=== PATIENT | female | born 1990 | race Asian ===

== ENCOUNTER 2018-01-29 19:44 | Emergency (ER) | payer MEDICAID ==
[~2018-01-29] VITALS: Ht 172.7 cm; Wt 91.6 kg
[~2018-01-29 19:44] MED LIST: PREN-96 PO
[2018-01-29 20:58] LABS: Basophils # (auto) 0 uL; Basophils % (auto) 0.5 % (0.0-2.0); Eosinophils # (auto) 0.3 uL; Monocytes # (auto) 0.5 uL
[2018-01-29 21:00] LABS: Eosinophils % (auto) 3.4 % (0.0-7.0); Hematocrit 40.5 % (36.0-46.0); Hemoglobin 13.3 g/dL (12.2-16.2); Lymphocytes % (auto) 35.9 % (10.0-50.0); Mean Corpuscular Hemoglobin 25.6 pg (28.0-32.0); Mean Corpuscular Hgb Conc. 32.7 g/dL (32.0-36.0); Mean Corpuscular Volume 78.2 fL (80.0-100.0); Monocytes % (auto) 6.6 % (0.0-12.0); Neutrophils # (auto) 4.4 uL; Neutrophils % (auto) 53.6 % (37.0-80.0); Nucleated Red Blood Cells % 0.2 %; Platelet Count (auto) 309 10^3/uL (140-450); Red Blood Cells 5.19 10^6/uL (4.0-5.20); Red Cell Distribution Width 14.4 % (11.8-14.3); White Blood Cell 8.2 10^3/uL (4.4-10.8)
[2018-01-29 21:08] LABS: Albumin 3.9 g/dL (3.4-5.0); BUN/Creatinine Ratio 11.4; Calcium 8.2 mg/dL (8.5-10.1); Potassium 3.4 mmol/L (3.5-5.1)
[2018-01-29 21:10] LABS: Bilirubin, Total 0.4 mg/dL (0.2-1.0)
[2018-01-30 04:39] LABS: Urine Specific Gravity 1.015 (1.001-1.035)
[2018-01-30 04:40] LABS: Urine Blood 2+ /uL (Negative); Urine WBC 3 /hpf (0 - 5)
[2018-01-30 04:41] LABS: Urine Bacteria FEW /hpf (None Seen); Urine Mucus MANY (None Seen)
[2018-01-30 05:01] VITALS: BP 104/65
[2018-01-30] MEDS ORDERED: ACETAMINOPHEN 325 MG TAB PO ONE (06:15)
== END 2018-01-30 06:19 | disposition home or self-care (01) ==
LOC: ER 19:44
DX: O46.91 Antepartum hemorrhage, unspecified, first trimester (principal); Z3A.00 Weeks of gestation of pregnancy not specified; Z88.0 Allergy status to penicillin; Z91.041 Radiographic dye allergy status
CPT/HCPCS: 36415; 76801; 76817; 80053; 81001; 84702; 85025; 86901

== ENCOUNTER 2024-05-15 18:40 | Emergency (ER) | payer MEDICAID ==
[~2024-05-15] VITALS: Ht 175.3 cm; Wt 86.0 kg
[2024-05-15] MEDS ORDERED: ACETAMINOPHEN 325 MG TAB PO ONE (18:56)
[2024-05-15 18:58] VITALS: BP 130/81; PULSE 110; RESP 18; O2SAT 98
[2024-05-15] MEDS ORDERED: ONDANSETRON ODT 4 MG TAB PO ONE (19:30)
[2024-05-15] MEDS ORDERED: FAMOTIDINE 20 MG TAB PO ONE (19:30)
--- NOTE | 2024-05-15 19:30 | ED.PDOC ---
GI ASSESSMENT HPI Comments 34-year-old female who came to ER for diarrhea. Patient states a week ago suffering from flu-like symptoms including cough and congestion, followed shortly by episodes of diarrhea, loose nonbloody. Few hours ago patient started having epigastric abdominal pain, tight, nonradiating. Denies any nausea or vomiting. Patient states her 1-year-old daughter has similar symptoms. Chief Complaint: Diarrhea Time Seen by MD: 19:30 Reviewed Notes: Nurses Notes Allergies: Coded Allergies: Iodide (Verified Allergy, Unknown, 01/29/18) Penicillins (Verified Allergy, Unknown, 01/29/18) Home Meds Reported Medications Vit W/ Ferrous Fumara ( One Daily) Daily Tab, 1 TAB PO DAILY, #90 TAB 3 Refills 05/18/15 Information Source: Patient Mode of Arrival: Ambulatory Timing: Days Duration: Since onset Prehospital treatment: None Quality: Other (tight) Vomitus: None Stool: Loose, Watery Severity: Other Recent: None Recent Hx of: None Pain Location: Epigastric Modifying Factors: Nothing Associated sign and symptoms: Diarrhea, Abdominal Pain Past Medical History PAST MEDICAL HISTORY: Denies 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 Social History Smoker: Non-Smoker Alcohol: Denies ETOH Use Drugs: Denies Drug Use Lives In: Home Constitutional: denies: chills, diaphoresis, fatigue, fever, malaise, sweats, weakness, others EENTM: reports: nose congestion; denies: blurred vision, double vision, ear bleeding, ear discharge, ear drainage, ear pain, ear ringing, eye pain, eye redness, hearing loss, mouth pain, mouth swelling, nasal discharge, nose bleeding, nose pain, photophobia, tearing, throat pain, throat swelling, voice changes, others Respiratory: reports: cough; denies: hemoptysis, orthopnea, SOB at rest, shortness of breath, SOB with excertion, stridor, wheezing, others Cardiovascular: denies: chest pain, dizzy spells, diaphoresis, Dyspnea on exertion, edema, irregular heart beat, left arm pain, lightheadedness, palpitations, PND, syncope, others Gastrointestinal: reports: abdominal pain, diarrhea; denies: abdomen distended, blood streaked bowels, constipated, dysphagia, difficulty swallowing, hematemesis, melena, nausea, poor appetite, poor fluid intake, rectal bleeding, rectal pain, vomiting, others Genitourinary: denies: abnormal vagina bleeding, burning, dyspareunia, dysuria, flank pain, frequency, hematuria, incontinence, pain, , vagina discharge, urgency, others Neurological: denies: dizziness, fainting, headache, left sided numbness, left sided weakness, numbness, paresthesia, pre-existing deficit, right sided numbness, right sided weakness, seizure, speech problems, tingling, tremors, weakness, others Musculoskeletal: denies: back pain, gout, joint pain, joint swelling, muscle pain, muscle stiffness, neck pain, others Integumetry: denies: bruises, change in color, change in hair/nails, dryness, laceration, lesions, lumps, rash, wounds, others Allergic/Immunocompromised: denies: Difficulty Healing, Frequent Infections, Hives, Itching, others Hematologic/Lymphatic: denies: anemia, blood clots, easy bleeding, easy b ruising, swollen glands, others Endocrine: denies: excessive hunger, excessive sweating, excessive thirst, excessive urination, flushing, intolerance to cold, intolerance to heat, unexplained weight gain, unexplained weight loss, others Psychiatric: denies: anxiety, bipolar disorder, depression, hopeless, panic disorder, schizophrenia, sleepless, suicidal, others Physical Exam General Appearance: No Apparent Distress, Normal HEENT: Normal ENT Inspection, Pharynx Normal, TMs Normal Neck: Full Range of Motion, Non-Tender, Normal, Normal Inspection Respiratory: Chest Non-Tender, Lungs Clear, No Accessory Muscle Use, No Respiratory Distress, Normal Breath Sounds Cardiovascular: No Edema, No JVD, No Murmur, No Gallop, Normal Peripheral Pulses, Regular Rate/Rhythm Breast Exam: Deferred Gastrointestinal: Epigastric, No Organomegaly, No Pulsatile Mass, Normal Bowel Sounds, Soft, Tenderness Genitalia: Deferred Pelvic: Deferred Rectal: Deferred Extremities: No calf tenderness, Normal capillary refill, Normal inspection, Normal range of motion, Non-tender, No pedal edema Musculoskeletal : Apperance: Normal Neurologic: Alert, application administrator II-XII nml as Tested, No Motor Deficits, Normal Affect, Normal Mood, No Sensory Deficits Cerebellar Function: Normal Reflexes: Normal Skin: Dry, Normal Color, Warm Lymphatic: No Adenopathy Was a procedure done? Was a procedure done?: No GI differential Dx Differential Diagnosis: Diverticular disease, Gastritis/PUD, Gastroenteritis, UTI, Urolithiasis, Dehydration, Electrolyte Imbalance, Food Poisoning X-Ray, Labs, Meds, VS Vital Signs Date Time Temp Pulse Resp B/P (MAP) Pulse Ox O2 Delivery O2 Flow Rate FiO2 05/15/24 18:58 101.7 110 18 130/81 (97) 98 Time of 1ST Reevaluation: 19:27 Reevaluation 1ST: Unchanged Patient Education/Counseling: Diagnosis, Treatment Family Education/Counseling: Diagnosis, Treatment Departure 1 Departure Time of Disposition: 19:38 (Patient with symptoms concerning for viral gastroenteritis given that other family members are afflicted with the same condition. We will discharge patient home with outpatient follow up and careful return precautions.) Impression: Primary Impression: Viral gastroenteritis Disposition: 01 HOME / SELF CARE / HOMELESS Condition: Stable Additional Instructions: You likely have gastroenteritis. It is important to stay well hydrated and well rested. This usually resolves within 1 week to 10 days. If your symptoms worsen or you have any other concerns please return to the ER. Discharged With: Self Critical Care Note Critical Care Time?: No Stability Stability form required: No Heart Score Heart Score: Heart Score Response (Comments) Value History N/A 0 EKG N/A 0 Age N/A 0 Risk Factors N/A 0 Troponin N/A 0 Total 0 I personally scribed for SAJI RIOJAS MD ([email or web address]) on 05/15/24 at 19:30. Electronically submitted by Geo Kraft ([facility]). SAJI RIOJAS MD May 15, 2024 19:30
[2024-05-15] MEDS ORDERED: LOPERAMIDE HCL 2 MG CAP/TAB PO ONE (19:45)
== END 2024-05-15 21:00 | disposition left against medical advice (07) ==
LOC: ER 18:40
DX: A08.4 Viral intestinal infection, unspecified (principal); Z88.0 Allergy status to penicillin

== ENCOUNTER 2025-02-02 13:51 | Emergency (ER) | payer MEDICAID, OTHER ==
[~2025-02-02] VITALS: Ht 175.3 cm; Wt 98.3 kg
[2025-02-02 13:56] VITALS: BP 146/94; PULSE 80; RESP 20; TEMP 97.9; O2SAT 97
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
== END 2025-02-02 16:07 | disposition home or self-care (01) ==
LOC: ER 13:51
DX: R51.9 Headache, unspecified (principal); Z88.0 Allergy status to penicillin; Z88.2 Allergy status to sulfonamides; V43.52XA Car driver injured in collision with other type car in traffic accident, initial encounter; Y93.89 Activity, other specified; Y92.410 Unspecified street and highway as the place of occurrence of the external cause; Y99.8 Other external cause status